=== PATIENT | female | born 1930 | race Caucasian/White ===

== ENCOUNTER 2018-04-01 09:12 | Inpatient (IN) | payer MEDICARE ==
[2018-04-01] MEDS ORDERED: Acetaminophen 325 MG TAB PO PRN (15:21)
[2018-04-01] MEDS: Aspirin 325 mg Enteric Coated Tablet PO SCH (20:21)
[2018-04-01] MEDS: HYDROcodone/Acetaminophen 10/325 mg Tablet PO PRN (20:21)
[2018-04-02] MEDS: Magnesium Oxide 400 MG TAB PO SCH (09:06)
[2018-04-02] MEDS: Valsartan 80 MG TAB PO SCH (09:06)
[2018-04-02] MEDS: Atorvastatin Calcium 10 MG TAB PO SCH (09:07)
[2018-04-02] MEDS: Hydrochlorothiazide 25 MG TAB PO SCH (09:07)
[2018-04-02] MEDS: Aspirin 325 mg Enteric Coated Tablet PO SCH ×2 (09:08→20:33)
[2018-04-02] MEDS: CeleCOXIB 100 MG CAP PO SCH (09:17)
--- NOTE | 2018-04-02 13:43 | HP ---
DATE OF ADMISSION: 04/01/2018 PRIMARY CARE PHYSICIAN: Karthikeyan Hamilton M.D. ATTENDING PHYSICIAN: Nevin Sevilla M.D. CHIEF COMPLAINT: Right leg weakness for physical therapy, status post right hip arthroplasty. HISTORY OF PRESENT ILLNESS: Ms. Caballero is an 88-year-old female with hypertension, hyperlipidemia, polymyalgia rheumatica, chronic dysphagia and degenerative joint disease. She underwent right hip elective arthroplasty on under Dr. Valdes. She did fine pre and intraoperatively. Prior to her discharge, she ambulated about 50 feet with rolling walker and contact guard assist. Prior to her transfer, patient was able to maintain 50% weightbearing on the right lower extremity. Patient has fatigue, weak gait, decreased strength and endurance, hence recommendations for [facility] facility with physical and occupational therapy. Today, she walked about 90 feet using rolling walker with standby assistance. She denies any worsening pain. Her appetite is fair. No urinary complaints or constipation. PAST MEDICAL HISTORY: 1. Hypertension. 2. Hyperlipidemia. 3. Polymyalgia rheumatica. 4. Peripheral vascular disease. 5. Chronic dysphagia. PAST SURGICAL HISTORY: 1. Right total hip arthroplasty. 2. Right total knee arthroplasty. 3. Hysterectomy. SOCIAL HISTORY: The patient is a , lives by herself in [place], [place]. She denies tobacco or illicit drug use. She denies alcohol use. FAMILY HISTORY: Her mother when she was 11 years old due to suicide, father at 64 due to myocardial infarction. Her two brothers have history of colon cancer, one was at age 50. ALLERGIES: No known drug allergies. MEDICATIONS: 1. Tylenol 650 mg every 4 hours p.r.n. for pain. 2. Aspirin 325 mg b.i.d. 3. Lipitor 10 mg daily. 4. Celebrex 200 mg daily as scheduled. 5. Colace 100 mg b.i.d. p.r.n. for constipation. 6. Ergocalciferol 1.25 mg every 7 days. 7. Hydrochlorothiazide 12.5 mg daily. 8. Panacea 10/325 one tablet every 4 hours p.r.n. for pain. 9. Magnesium oxide 500 mg daily. 10. Tramadol 50 mg every 6 hours p.r.n. for pain. 11. Diovan 160 mg 1 tablet daily. REVIEW OF SYSTEMS: General: No fever, no chills. HEENT: No headaches, no sore throat. Respiratory: Positive for mild dry cough. Negative for shortness of breath. Negative for wheezing. Cardiovascular: No chest pain, no edema. Gastrointestinal: Positive for mild constipation. Positive for decreased appetite. Positive for dysphagia. Negative for nausea, vomiting or diarrhea. Genitourinary: No dysuria, no hematuria. Psychiatric: No depression. No anxiety. Neurologic: Positive for mild weakness on the right lower extremity secondary to recent surgery. Positive for weak gait. Dermatology: No skin lesions. PHYSICAL EXAMINATION: VITAL SIGNS: Blood pressure 118/59, O2 sat 95% on room air, respiratory rate of 20, heart rate of 85, temperature of 98.3. GENERAL: The patient is alert, oriented, not in respiratory distress. HEENT: Normocephalic, atraumatic. Pupils equally reactive to light. NECK: Supple. Negative lymphadenopathy. CHEST AND LUNGS: Symmetrical expansion. Clear to auscultation. HEART: Regular rate and rhythm. Negative for murmur, rubs or gallops. ABDOMEN: Flat, soft, nontender, normoactive bowel sounds. GENITOURINARY: Deferred. EXTREMITIES: Positive for incision on right hip, clean, dry, and intact, Positive for bruising around the incision site. Positive for tenderness. Positive for warm to touch. Positive for decreased range of motion on the affected lower extremity. PSYCHIATRIC: Appropriate affect and demeanor. LABORATORY DATA: Reviewed. ASSESSMENT: 1. Right lower extremity weakness, status post right hip arthroplasty. 2. Hypertension. 3. Hyperlipidemia. 4. Chronic dysphagia. 5. Peripheral vascular disease. 6. Polymyalgia rheumatica. PLAN: The patient will be admitted for [facility] with physical and occupational therapy. Prognosis for significant improvement with reasonable time appears good. We will monitor for infection, bleeding, pain management and side effects of current medication. She will participate with PT to address strength, range of motion, transfer training, gait, transfers, and training with progression to home exercises. She will participate with OT to address ADLs. We will reconcile her home medications and adjust dosage prior to her discharge. Case management to address how the patient can be discharged safely in a timely manner. Anticipate discharge to home in about 2-3 weeks. ABEBE
[2018-04-02] MEDS: traMADol HCl 50 MG TAB PO PRN (20:33)
[2018-04-03] MEDS: traMADol HCl 50 MG TAB PO PRN ×2 (03:30→20:19)
[2018-04-03] MEDS: Aspirin 325 mg Enteric Coated Tablet PO SCH ×2 (09:14→20:19)
[2018-04-03] MEDS: Atorvastatin Calcium 10 MG TAB PO SCH (09:14)
[2018-04-03] MEDS: Valsartan 80 MG TAB PO SCH (09:14)
[2018-04-03] MEDS: Magnesium Oxide 400 MG TAB PO SCH (09:15)
[2018-04-03] MEDS: Hydrochlorothiazide 25 MG TAB PO SCH (09:15)
[2018-04-03] MEDS: CeleCOXIB 100 MG CAP PO SCH (09:17)
[2018-04-03] MEDS: Docusate 100 MG CAP PO PRN (09:26)
[2018-04-04 05:39] LABS: #Basophils 0.1 thou/uL (0.0-0.2); #Eosinphils 0.3 thou/uL (0.0-0.7); #Lymphocytes 2.1 thou/uL (1.20-3.40); #Monocytes 0.7 thou/uL (0.11-0.59); #Neutrophils 4.4 thou/uL (1.40-6.50); %Basophils 1.2 % (0.0-1.0); %Eosinophils 4.5 % (0.0-10.0); %Lymphocytes 27.8 % (21.0-51.0); %Monocytes 9.4 % (0.0-10.0); %Neutrophils 57.2 % (42.0-75.0); Hemoglobin 8.2 g/dL (12.0-16.0); Mean Corpuscular Hemoglobin 30.1 pg (27.0-31.0); Mean Corpuscular Volume 88.6 fL (78.0-98.0); Mean Platelet Volume 7.2 fL (7.4-10.4); Platelet Count 237 thou/uL (130-400); RBC Distribution Width 12.1 % (11.5-14.5); White Blood Cell (WBC) Count 7.7 thou/uL (4.8-10.8)
[2018-04-04] MEDS: Atorvastatin Calcium 10 MG TAB PO SCH (09:23)
[2018-04-04] MEDS: Aspirin 325 mg Enteric Coated Tablet PO SCH ×2 (09:23→20:30)
[2018-04-04] MEDS: Hydrochlorothiazide 25 MG TAB PO SCH (09:25)
[2018-04-04] MEDS: Magnesium Oxide 400 MG TAB PO SCH (09:28)
[2018-04-04] MEDS: Valsartan 80 MG TAB PO SCH (09:30)
[2018-04-04 10:29] LABS: ALT (SGPT) Less than 7 U/L (8-55); AST (SGOT) 16 U/L (5-34); Albumin 2.9 g/dL (3.4-4.8); Alkaline Phosphatase 53 U/L (40-150); Anion Gap 11 mmol/L (10-20); BUN (Urea Nitrogen) 12 mg/dL (9.8-20.1); Bilirubin, Total 0.4 mg/dL (0.2-1.2); Calc. Creatinine Clearance 68 mL/min (70-130); Calcium 8.9 mg/dL (7.8-10.44); Carbon Dioxide 30 mmol/L (23-31); Chloride 102 mmol/L (98-107); Estimated GFR-MDRD 86; Globulin 2.3 g/dL (2.4-3.5); Glucose 99 mg/dL (83-110); Potassium 4.3 mmol/L (3.5-5.1); Protein, Total 5.2 g/dL (6.0-8.3); Sodium 139 mmol/L (136-145)
[2018-04-04] MEDS: traMADol HCl 50 MG TAB PO PRN ×2 (12:29→20:31)
[2018-04-05] MEDS: Hydrochlorothiazide 25 MG TAB PO SCH (08:39)
[2018-04-05] MEDS: Valsartan 80 MG TAB PO SCH (08:39)
[2018-04-05] MEDS: Aspirin 325 mg Enteric Coated Tablet PO SCH ×2 (08:40→20:19)
[2018-04-05] MEDS: Ferrous Sulfate 325 MG TAB PO SCH (08:40)
[2018-04-05] MEDS: Atorvastatin Calcium 10 MG TAB PO SCH (08:40)
[2018-04-05] MEDS: Docusate 100 MG CAP PO PRN ×2 (10:09→22:24)
[2018-04-05] MEDS: Magnesium Oxide 400 MG TAB PO SCH (10:10)
[2018-04-05] MEDS: HYDROcodone/Acetaminophen 10/325 mg Tablet PO PRN (10:11)
[2018-04-05] MEDS: traMADol HCl 50 MG TAB PO PRN (20:19)
[2018-04-06] MEDS: Ferrous Sulfate 325 MG TAB PO SCH (08:59)
[2018-04-06] MEDS: Atorvastatin Calcium 10 MG TAB PO SCH (08:59)
[2018-04-06] MEDS: Hydrochlorothiazide 25 MG TAB PO SCH (08:59)
[2018-04-06] MEDS: Valsartan 80 MG TAB PO SCH (09:00)
[2018-04-06] MEDS: Aspirin 325 mg Enteric Coated Tablet PO SCH ×2 (09:00→20:34)
[2018-04-06] MEDS: Magnesium Oxide 400 MG TAB PO SCH (10:18)
[2018-04-06] MEDS: traMADol HCl 50 MG TAB PO PRN ×2 (14:04→20:37)
[2018-04-07] MEDS: Valsartan 80 MG TAB PO SCH (09:57)
[2018-04-07] MEDS: Aspirin 325 mg Enteric Coated Tablet PO SCH ×2 (09:58→21:06)
[2018-04-07] MEDS: Hydrochlorothiazide 25 MG TAB PO SCH (09:58)
[2018-04-07] MEDS: Docusate 100 MG CAP PO PRN (09:58)
[2018-04-07] MEDS: Ferrous Sulfate 325 MG TAB PO SCH (09:58)
[2018-04-07] MEDS: Atorvastatin Calcium 10 MG TAB PO SCH (09:59)
[2018-04-07] MEDS: Nystatin Powder 15 GM BOT TOP PRN (10:11)
[2018-04-07] MEDS: Magnesium Oxide 400 MG TAB PO SCH (11:35)
[2018-04-07] MEDS: traMADol HCl 50 MG TAB PO PRN (22:28)
[2018-04-08] MEDS: Hydrochlorothiazide 25 MG TAB PO SCH (09:44)
[2018-04-08] MEDS: Atorvastatin Calcium 10 MG TAB PO SCH (09:44)
[2018-04-08] MEDS: Aspirin 325 mg Enteric Coated Tablet PO SCH ×2 (09:44→21:06)
[2018-04-08] MEDS: Ferrous Sulfate 325 MG TAB PO SCH (09:44)
[2018-04-08] MEDS: Valsartan 80 MG TAB PO SCH (09:45)
[2018-04-08] MEDS: traMADol HCl 50 MG TAB PO PRN ×2 (09:46→21:07)
[2018-04-08] MEDS: Ergocalciferol 1.25 MG(50,000 UNITS) CAP PO SCH (09:53)
[2018-04-08] MEDS: Nystatin Powder 15 GM BOT TOP PRN (09:54)
[2018-04-08] MEDS: Magnesium Oxide 400 MG TAB PO SCH (11:06)
[2018-04-09] MEDS: Ferrous Sulfate 325 MG TAB PO SCH (09:03)
[2018-04-09] MEDS: Hydrochlorothiazide 25 MG TAB PO SCH (09:04)
[2018-04-09] MEDS: Aspirin 325 mg Enteric Coated Tablet PO SCH ×2 (09:04→20:34)
[2018-04-09] MEDS: Atorvastatin Calcium 10 MG TAB PO SCH (09:04)
[2018-04-09] MEDS: Docusate 100 MG CAP PO PRN (09:04)
[2018-04-09] MEDS: Valsartan 80 MG TAB PO SCH (09:04)
[2018-04-09] MEDS: Magnesium Oxide 400 MG TAB PO SCH (11:05)
[2018-04-09] MEDS: traMADol HCl 50 MG TAB PO PRN (20:33)
[2018-04-10] MEDS: Hydrochlorothiazide 25 MG TAB PO SCH (08:01)
[2018-04-10] MEDS: Valsartan 80 MG TAB PO SCH (08:01)
[2018-04-10] MEDS: Docusate 100 MG CAP PO PRN (08:01)
[2018-04-10] MEDS: Atorvastatin Calcium 10 MG TAB PO SCH (08:01)
[2018-04-10] MEDS: Ferrous Sulfate 325 MG TAB PO SCH (08:02)
[2018-04-10] MEDS: Aspirin 325 mg Enteric Coated Tablet PO SCH ×2 (08:02→21:06)
[2018-04-10] MEDS: Magnesium Oxide 400 MG TAB PO SCH (11:04)
[2018-04-10] MEDS: Nystatin Powder 15 GM BOT TOP PRN (11:06)
[2018-04-10] MEDS: traMADol HCl 50 MG TAB PO PRN (21:06)
[2018-04-11] MEDS: Valsartan 80 MG TAB PO SCH (08:54)
[2018-04-11] MEDS: Aspirin 325 mg Enteric Coated Tablet PO SCH ×2 (08:54→20:45)
[2018-04-11] MEDS: Hydrochlorothiazide 25 MG TAB PO SCH (08:54)
[2018-04-11] MEDS: Docusate 100 MG CAP PO PRN (08:55)
[2018-04-11] MEDS: Ferrous Sulfate 325 MG TAB PO SCH (08:55)
[2018-04-11] MEDS: Atorvastatin Calcium 10 MG TAB PO SCH (08:55)
[2018-04-11] MEDS: traMADol HCl 50 MG TAB PO PRN ×2 (09:03→20:48)
[2018-04-11] MEDS: Magnesium Oxide 400 MG TAB PO SCH (11:46)
[2018-04-12] MEDS: Valsartan 80 MG TAB PO SCH (09:12)
[2018-04-12] MEDS: Docusate 100 MG CAP PO PRN (09:12)
[2018-04-12] MEDS: Hydrochlorothiazide 25 MG TAB PO SCH (09:12)
[2018-04-12] MEDS: Aspirin 325 mg Enteric Coated Tablet PO SCH ×2 (09:12→20:23)
[2018-04-12] MEDS: traMADol HCl 50 MG TAB PO PRN ×2 (09:13→22:33)
[2018-04-12] MEDS: Ferrous Sulfate 325 MG TAB PO SCH (09:13)
[2018-04-12] MEDS: Atorvastatin Calcium 10 MG TAB PO SCH (09:13)
[2018-04-12] MEDS: Magnesium Oxide 400 MG TAB PO SCH (11:56)
--- NOTE | 2018-04-12 20:50 | RAD ---
RIGHT HIP THREE VIEWS: 04/12/18 A total hip arthroplasty is in place. There is no sign of fracture, dislocation, or other acute bony changes. There is no substantial lucency around the femoral stem. No specific cause for pain was foun d. IMPRESSION: Normal postop appearance of right hip arthroplasty. POS: HOME
[2018-04-13] MEDS: HYDROcodone/Acetaminophen 10/325 mg Tablet PO PRN (08:04)
[2018-04-13] MEDS: Valsartan 80 MG TAB PO SCH (08:05)
[2018-04-13] MEDS: Ferrous Sulfate 325 MG TAB PO SCH (08:06)
[2018-04-13] MEDS: Hydrochlorothiazide 25 MG TAB PO SCH (08:06)
[2018-04-13] MEDS: Aspirin 325 mg Enteric Coated Tablet PO SCH ×2 (08:06→20:36)
[2018-04-13] MEDS: Atorvastatin Calcium 10 MG TAB PO SCH (08:06)
[2018-04-13] MEDS: Magnesium Oxide 400 MG TAB PO SCH (12:34)
[2018-04-13] MEDS: Docusate 100 MG CAP PO PRN (20:41)
[2018-04-13] MEDS: traMADol HCl 50 MG TAB PO PRN (20:41)
[2018-04-14] MEDS: traMADol HCl 50 MG TAB PO PRN ×2 (09:25→20:22)
[2018-04-14] MEDS: Valsartan 80 MG TAB PO SCH (09:27)
[2018-04-14] MEDS: Atorvastatin Calcium 10 MG TAB PO SCH (09:27)
[2018-04-14] MEDS: Hydrochlorothiazide 25 MG TAB PO SCH (09:28)
[2018-04-14] MEDS: Ferrous Sulfate 325 MG TAB PO SCH (09:28)
[2018-04-14] MEDS: Aspirin 325 mg Enteric Coated Tablet PO SCH ×2 (09:28→20:23)
[2018-04-14] MEDS: Docusate 100 MG CAP PO PRN (09:42)
[2018-04-14] MEDS: Magnesium Oxide 400 MG TAB PO SCH (11:53)
[2018-04-15] MEDS: Ergocalciferol 1.25 MG(50,000 UNITS) CAP PO SCH (11:26)
[2018-04-15] MEDS: Ferrous Sulfate 325 MG TAB PO SCH (11:27)
[2018-04-15] MEDS: Valsartan 80 MG TAB PO SCH (11:28)
[2018-04-15] MEDS: Aspirin 325 mg Enteric Coated Tablet PO SCH ×2 (11:28→20:47)
[2018-04-15] MEDS: Hydrochlorothiazide 25 MG TAB PO SCH (11:29)
[2018-04-15] MEDS: Atorvastatin Calcium 10 MG TAB PO SCH (11:32)
[2018-04-15] MEDS: Magnesium Oxide 400 MG TAB PO SCH (11:40)
[2018-04-15] MEDS: Docusate 100 MG CAP PO PRN (20:47)
[2018-04-15] MEDS: traMADol HCl 50 MG TAB PO PRN (20:47)
[2018-04-16] MEDS: Hydrochlorothiazide 25 MG TAB PO SCH (09:38)
[2018-04-16] MEDS: Ferrous Sulfate 325 MG TAB PO SCH (09:38)
[2018-04-16] MEDS: Valsartan 80 MG TAB PO SCH (09:38)
[2018-04-16] MEDS: Aspirin 325 mg Enteric Coated Tablet PO SCH ×2 (09:38→21:13)
[2018-04-16] MEDS: Atorvastatin Calcium 10 MG TAB PO SCH (09:39)
[2018-04-16] MEDS: Magnesium Oxide 400 MG TAB PO SCH (13:13)
[2018-04-16] MEDS: traMADol HCl 50 MG TAB PO PRN (21:12)
[2018-04-17] MEDS: Hydrochlorothiazide 25 MG TAB PO SCH (09:23)
[2018-04-17] MEDS: Valsartan 80 MG TAB PO SCH (09:23)
[2018-04-17] MEDS: Atorvastatin Calcium 10 MG TAB PO SCH (09:24)
[2018-04-17] MEDS: Aspirin 325 mg Enteric Coated Tablet PO SCH ×2 (09:24→21:07)
[2018-04-17] MEDS: Ferrous Sulfate 325 MG TAB PO SCH (09:24)
[2018-04-17] MEDS: Magnesium Oxide 400 MG TAB PO SCH (11:32)
[2018-04-17] MEDS: traMADol HCl 50 MG TAB PO PRN (21:07)
[2018-04-18] MEDS: Docusate 100 MG CAP PO PRN (09:46)
[2018-04-18] MEDS: Valsartan 80 MG TAB PO SCH (09:46)
[2018-04-18] MEDS: Hydrochlorothiazide 25 MG TAB PO SCH (09:46)
[2018-04-18] MEDS: Aspirin 325 mg Enteric Coated Tablet PO SCH ×2 (09:47→20:53)
[2018-04-18] MEDS: Atorvastatin Calcium 10 MG TAB PO SCH (09:47)
[2018-04-18] MEDS: Ferrous Sulfate 325 MG TAB PO SCH (09:47)
[2018-04-18] MEDS: Magnesium Oxide 400 MG TAB PO SCH (12:01)
[2018-04-18] MEDS: traMADol HCl 50 MG TAB PO PRN (20:52)
[2018-04-19] MEDS: Valsartan 80 MG TAB PO SCH (09:46)
[2018-04-19] MEDS: Aspirin 325 mg Enteric Coated Tablet PO SCH ×2 (09:46→20:55)
[2018-04-19] MEDS: Atorvastatin Calcium 10 MG TAB PO SCH (09:46)
[2018-04-19] MEDS: Ferrous Sulfate 325 MG TAB PO SCH (09:47)
[2018-04-19] MEDS: Hydrochlorothiazide 25 MG TAB PO SCH (09:47)
[2018-04-19] MEDS: Docusate 100 MG CAP PO PRN (09:48)
[2018-04-19] MEDS: Magnesium Oxide 400 MG TAB PO SCH (11:16)
[2018-04-19] MEDS: traMADol HCl 50 MG TAB PO PRN (20:55)
[2018-04-20] MEDS: Valsartan 80 MG TAB PO SCH (08:46)
[2018-04-20] MEDS: Hydrochlorothiazide 25 MG TAB PO SCH (08:47)
[2018-04-20] MEDS: Aspirin 325 mg Enteric Coated Tablet PO SCH ×2 (08:48→20:37)
[2018-04-20] MEDS: Ferrous Sulfate 325 MG TAB PO SCH (08:48)
[2018-04-20] MEDS: Atorvastatin Calcium 10 MG TAB PO SCH (08:49)
[2018-04-20] MEDS: Docusate 100 MG CAP PO PRN (08:49)
[2018-04-20] MEDS: Ergocalciferol 1.25 MG(50,000 UNITS) CAP PO SCH (08:57)
[2018-04-20] MEDS: Magnesium Oxide 400 MG TAB PO SCH (12:06)
[2018-04-20] MEDS: traMADol HCl 50 MG TAB PO PRN (20:36)
[2018-04-21] MEDS: Valsartan 80 MG TAB PO SCH (08:55)
[2018-04-21] MEDS: Atorvastatin Calcium 10 MG TAB PO SCH (08:56)
[2018-04-21] MEDS: Hydrochlorothiazide 25 MG TAB PO SCH (08:56)
[2018-04-21] MEDS: Aspirin 325 mg Enteric Coated Tablet PO SCH ×2 (08:56→20:40)
[2018-04-21] MEDS: Ferrous Sulfate 325 MG TAB PO SCH (08:57)
[2018-04-21] MEDS: Magnesium Oxide 400 MG TAB PO SCH (12:58)
[2018-04-21] MEDS: traMADol HCl 50 MG TAB PO PRN (20:47)
[2018-04-22] MEDS: Aspirin 325 mg Enteric Coated Tablet PO SCH ×2 (09:08→21:31)
[2018-04-22] MEDS: Ferrous Sulfate 325 MG TAB PO SCH (09:08)
[2018-04-22] MEDS: Valsartan 80 MG TAB PO SCH (09:08)
[2018-04-22] MEDS: Hydrochlorothiazide 25 MG TAB PO SCH (09:09)
[2018-04-22] MEDS: Atorvastatin Calcium 10 MG TAB PO SCH (09:09)
[2018-04-22] MEDS: Magnesium Oxide 400 MG TAB PO SCH (12:01)
[2018-04-22] MEDS: traMADol HCl 50 MG TAB PO PRN (21:31)
[2018-04-23] MEDS: Valsartan 80 MG TAB PO SCH (09:13)
[2018-04-23] MEDS: Atorvastatin Calcium 10 MG TAB PO SCH (09:14)
[2018-04-23] MEDS: Hydrochlorothiazide 25 MG TAB PO SCH (09:14)
[2018-04-23] MEDS: Ferrous Sulfate 325 MG TAB PO SCH (09:14)
[2018-04-23] MEDS: Aspirin 325 mg Enteric Coated Tablet PO SCH ×2 (09:15→20:08)
[2018-04-23] MEDS: Magnesium Oxide 400 MG TAB PO SCH (12:36)
[2018-04-23] MEDS: traMADol HCl 50 MG TAB PO PRN (20:08)
[2018-04-24] MEDS: Atorvastatin Calcium 10 MG TAB PO SCH (09:00)
[2018-04-24] MEDS: Hydrochlorothiazide 25 MG TAB PO SCH (09:00)
[2018-04-24] MEDS: Polyethylene Glycol 3350 17 GM Packet PO PRN (09:00)
[2018-04-24] MEDS: Aspirin 325 mg Enteric Coated Tablet PO SCH ×2 (09:00→20:29)
[2018-04-24] MEDS: Valsartan 80 MG TAB PO SCH (09:00)
[2018-04-24] MEDS: Docusate 100 MG CAP PO PRN (09:01)
[2018-04-24] MEDS: Ferrous Sulfate 325 MG TAB PO SCH (09:01)
[2018-04-24 11:07] LABS: Anion Gap 14 mmol/L (10-20); BUN (Urea Nitrogen) 15 mg/dL (9.8-20.1); Calc. Creatinine Clearance 65 mL/min (70-130); Calcium 9.5 mg/dL (7.8-10.44); Carbon Dioxide 27 mmol/L (23-31); Chloride 100 mmol/L (98-107); Estimated GFR-MDRD 82; Glucose 100 mg/dL (83-110); Sodium 137 mmol/L (136-145)
[2018-04-24 11:20] LABS: #Basophils 0.1 thou/uL (0.0-0.2); #Eosinphils 0.3 thou/uL (0.0-0.7); #Lymphocytes 1.9 thou/uL (1.20-3.40); #Monocytes 0.9 thou/uL (0.11-0.59); #Neutrophils 6.3 thou/uL (1.40-6.50); %Basophils 0.9 % (0.0-1.0); %Eosinophils 3.3 % (0.0-10.0); %Lymphocytes 19.9 % (21.0-51.0); %Monocytes 9.8 % (0.0-10.0); %Neutrophils 66.1 % (42.0-75.0); Eosinophils 2 % (0-10); Hemoglobin 9.2 g/dL (12.0-16.0); Lymphocytes 22 % (21-51); MDiff Complete? YES; Mean Corpuscular HGB CONC 32.2 g/dL (32.0-36.0); Mean Corpuscular Hemoglobin 28.3 pg (27.0-31.0); Mean Corpuscular Volume 88.1 fL (78.0-98.0); Mean Platelet Volume 6.7 fL (7.4-10.4); Monocytes 11 % (0-10); Neutrophil 64 % (42-75); Platelet Count 353 thou/uL (130-400); RBC Distribution Width 12.9 % (11.5-14.5); Red Blood Cell (RBC) Count 3.24 mill/uL (4.20-5.40); Small Platelets SLIGHT; White Blood Cell (WBC) Count 9.6 thou/uL (4.8-10.8)
[2018-04-24] MEDS: Magnesium Oxide 400 MG TAB PO SCH (11:24)
[2018-04-24] MEDS: traMADol HCl 50 MG TAB PO PRN (20:29)
[2018-04-25] MEDS: Valsartan 80 MG TAB PO SCH (09:01)
[2018-04-25] MEDS: Polyethylene Glycol 3350 17 GM Packet PO PRN (09:01)
[2018-04-25] MEDS: Atorvastatin Calcium 10 MG TAB PO SCH (09:02)
[2018-04-25] MEDS: Docusate 100 MG CAP PO PRN (09:02)
[2018-04-25] MEDS: Hydrochlorothiazide 25 MG TAB PO SCH (09:02)
[2018-04-25] MEDS: Ferrous Sulfate 325 MG TAB PO SCH (09:02)
[2018-04-25] MEDS: Aspirin 325 mg Enteric Coated Tablet PO SCH ×2 (09:03→20:12)
[2018-04-25] MEDS: Magnesium Oxide 400 MG TAB PO SCH (10:54)
[2018-04-25] MEDS: traMADol HCl 50 MG TAB PO PRN (20:12)
[2018-04-26] MEDS: Valsartan 80 MG TAB PO SCH (09:05)
[2018-04-26] MEDS: Atorvastatin Calcium 10 MG TAB PO SCH (09:05)
[2018-04-26] MEDS: Polyethylene Glycol 3350 17 GM Packet PO PRN (09:05)
[2018-04-26] MEDS: Hydrochlorothiazide 25 MG TAB PO SCH (09:05)
[2018-04-26] MEDS: Docusate 100 MG CAP PO PRN (09:05)
[2018-04-26] MEDS: Ferrous Sulfate 325 MG TAB PO SCH (09:05)
[2018-04-26] MEDS: Aspirin 325 mg Enteric Coated Tablet PO SCH ×2 (09:05→20:16)
[2018-04-26] MEDS: Magnesium Oxide 400 MG TAB PO SCH (12:55)
[2018-04-26] MEDS: traMADol HCl 50 MG TAB PO PRN (20:16)
[2018-04-27] MEDS: Atorvastatin Calcium 10 MG TAB PO SCH (08:42)
[2018-04-27] MEDS: Aspirin 325 mg Enteric Coated Tablet PO SCH ×2 (08:42→20:56)
[2018-04-27] MEDS: Hydrochlorothiazide 25 MG TAB PO SCH (08:43)
[2018-04-27] MEDS: Valsartan 80 MG TAB PO SCH (08:43)
[2018-04-27] MEDS: Ferrous Sulfate 325 MG TAB PO SCH (08:44)
[2018-04-27] MEDS: Magnesium Oxide 400 MG TAB PO SCH (13:00)
[2018-04-27] MEDS: traMADol HCl 50 MG TAB PO PRN (20:56)
[2018-04-27] MEDS: Docusate 100 MG CAP PO PRN (20:56)
[2018-04-28] MEDS: Hydrochlorothiazide 25 MG TAB PO SCH (08:40)
[2018-04-28] MEDS: Valsartan 80 MG TAB PO SCH (08:40)
[2018-04-28] MEDS: Aspirin 325 mg Enteric Coated Tablet PO SCH ×2 (08:41→20:40)
[2018-04-28] MEDS: Ferrous Sulfate 325 MG TAB PO SCH (08:41)
[2018-04-28] MEDS: Atorvastatin Calcium 10 MG TAB PO SCH (08:41)
[2018-04-28] MEDS: Magnesium Oxide 400 MG TAB PO SCH (11:46)
[2018-04-28] MEDS: traMADol HCl 50 MG TAB PO PRN (20:40)
[2018-04-29] MEDS: Valsartan 80 MG TAB PO SCH (08:49)
[2018-04-29] MEDS: Ferrous Sulfate 325 MG TAB PO SCH ×2 (08:49→08:54)
[2018-04-29] MEDS: Aspirin 325 mg Enteric Coated Tablet PO SCH ×3 (08:50→20:14)
[2018-04-29] MEDS: Hydrochlorothiazide 25 MG TAB PO SCH (08:50)
[2018-04-29] MEDS: Atorvastatin Calcium 10 MG TAB PO SCH (08:56)
[2018-04-29] MEDS: Ergocalciferol 1.25 MG(50,000 UNITS) CAP PO SCH (08:59)
[2018-04-29] MEDS: Polyethylene Glycol 3350 17 GM Packet PO PRN (09:04)
[2018-04-29] MEDS: Magnesium Oxide 400 MG TAB PO SCH (11:29)
[2018-04-29] MEDS: traMADol HCl 50 MG TAB PO PRN (20:14)
[2018-04-30] MEDS: Hydrochlorothiazide 25 MG TAB PO SCH (09:19)
[2018-04-30] MEDS: Atorvastatin Calcium 10 MG TAB PO SCH (09:19)
[2018-04-30] MEDS: Aspirin 325 mg Enteric Coated Tablet PO SCH ×2 (09:19→20:33)
[2018-04-30] MEDS: Valsartan 80 MG TAB PO SCH (09:19)
[2018-04-30] MEDS: Ferrous Sulfate 325 MG TAB PO SCH (09:20)
[2018-04-30] MEDS: Polyethylene Glycol 3350 17 GM Packet PO PRN (09:24)
[2018-04-30] MEDS: Magnesium Oxide 400 MG TAB PO SCH (12:01)
[2018-04-30] MEDS: traMADol HCl 50 MG TAB PO PRN (20:34)
[2018-05-01] MEDS: Polyethylene Glycol 3350 17 GM Packet PO PRN (09:23)
[2018-05-01] MEDS: Atorvastatin Calcium 10 MG TAB PO SCH ×2 (09:23→09:27)
[2018-05-01] MEDS: Hydrochlorothiazide 25 MG TAB PO SCH (09:23)
[2018-05-01] MEDS: Aspirin 325 mg Enteric Coated Tablet PO SCH ×2 (09:23→20:50)
[2018-05-01] MEDS: Ferrous Sulfate 325 MG TAB PO SCH (09:25)
[2018-05-01] MEDS: Valsartan 80 MG TAB PO SCH (09:27)
[2018-05-01] MEDS: Docusate 100 MG CAP PO PRN (09:28)
[2018-05-01] MEDS: Magnesium Oxide 400 MG TAB PO SCH (11:00)
[2018-05-01] MEDS: traMADol HCl 50 MG TAB PO PRN (20:50)
[2018-05-02 06:27] VITALS: BMI 28.5
[2018-05-02] MEDS: Hydrochlorothiazide 25 MG TAB PO SCH (09:31)
[2018-05-02] MEDS: Docusate 100 MG CAP PO PRN (09:31)
[2018-05-02] MEDS: Ferrous Sulfate 325 MG TAB PO SCH (09:31)
[2018-05-02] MEDS: Valsartan 80 MG TAB PO SCH (09:31)
[2018-05-02] MEDS: Aspirin 325 mg Enteric Coated Tablet PO SCH ×2 (09:31→20:36)
[2018-05-02] MEDS: Atorvastatin Calcium 10 MG TAB PO SCH (09:31)
[2018-05-02] MEDS: Magnesium Oxide 400 MG TAB PO SCH (10:56)
[2018-05-02] MEDS: traMADol HCl 50 MG TAB PO PRN (20:36)
[2018-05-03 05:40] VITALS: BP 137/63; TEMP 98.8
[2018-05-03] MEDS: Polyethylene Glycol 3350 17 GM Packet PO PRN (08:48)
[2018-05-03] MEDS: Hydrochlorothiazide 25 MG TAB PO SCH (08:48)
[2018-05-03] MEDS: Ferrous Sulfate 325 MG TAB PO SCH (08:49)
[2018-05-03] MEDS: Docusate 100 MG CAP PO PRN (08:49)
[2018-05-03] MEDS: Aspirin 325 mg Enteric Coated Tablet PO SCH (08:49)
[2018-05-03] MEDS: Atorvastatin Calcium 10 MG TAB PO SCH (08:49)
[2018-05-03] MEDS: Valsartan 80 MG TAB PO SCH (08:49)
== END 2018-05-03 11:29 | disposition home health service (06) | DRG 561 ==
LOC: BURMED 11:37
PROVIDERS: ADMIT Family Medicine; ATTEND Family Medicine
DX: Z47.1 Aftercare following joint replacement surgery (principal); Z96.641 Presence of right artificial hip joint; I10 Essential (primary) hypertension; E78.5 Hyperlipidemia, unspecified; M35.3 Polymyalgia rheumatica; R13.10 Dysphagia, unspecified; M19.90 Unspecified osteoarthritis, unspecified site; R26.9 Unspecified abnormalities of gait and mobility; R53.83 Other fatigue; I73.9 Peripheral vascular disease, unspecified; Z96.651 Presence of right artificial knee joint; R53.1 Weakness
CPT/HCPCS: 36415; 80048; 80053; 85025; 90471; 90662; G0008; G8978-GP-CK; G8979-GP-CI; G8987-GO-CI; G8987-GO-CJ; G8988-GO-CI; G8996-GN-CJ; G8997-GN-CI